=== PATIENT | male | born 1970 | race Caucasian/White ===

== ENCOUNTER 2017-02-20 05:39 | Day surgery (SDC) | payer OTHER ==
[~2017-02-20] VITALS: Ht 182.9 cm; Wt 84.4 kg
--- NOTE | ~2017-02-20 | O ---
[facility] [place] [address] [address] [address] OPERATIVE REPORT Name: CARLOS SHELL MAKAYLA Room #: DEP [facility]..#: [id number] Admission: 02/20/17 Attend Phys: Luis Miguel Holley MD Discharge: 02/20/17 Date of : 68 Report #: [id number] THIS REPORT FOR: //name// CC: Luis Miguel Skinner DATE OF SERVICE: 02/20/2017 CHIEF COMPLAINT: Nasal airway obstruction and polyposis. POSTOPERATIVE DIAGNOSIS: Nasal airway obstruction and polyposis. PROCEDURE: Revision nasal septoplasty. SURGEON: Luis Miguel Holley M.D. ANESTHESIA: General LMA. INDICATIONS: See H and P. FINDINGS: Moderate polyposis was noted in the left nasal vault with an atretic left middle turbinate, polypoid cobblestoning of the mucosa was noted on both sides of the nasal passages. Septal deflection was as described in the body of the technique. TECHNIQUE: After obtaining consent, he was brought to the operating suite, appropriate time out was performed. General oral LMA anesthesia was obtained. The bed was turned 90 degrees. The nose was prepped and draped in usual sterile fashion. The eyelids were protected by Anesthesia with tape. Originally, this was thought to be an endoscopic sinus case with septoplasty. Therefore, the ANTERIOS guidance system was registered and appropriate accuracy was confirmed. Cottonoids with Afrin were placed in each side of the nares for vasoconstriction of the inferior and middle turbinates. These were then removed using a 0 degree scope. Inspection was performed both left and right sides. Actually, there was noted to be a septal deviation to the patient's left side inferiorly and in the mid portion involving the quadrangular cartilage with a high septal deviation correction to the right side. The patient had previous "rhinoplasty" by history and his nasal bones were very narrowed superiorly limiting access superiorly. Due to the septal deviation on the left side and a polypoid mucosa which did not respond to vasoconstriction, visualization of the middle meatus and middle turbinate, the polyps was not adequate on the left or the right side. Therefore, the decision was made and discussed with the patient preoperatively to proceed with septoplasty to correct the septal deviation in hopes of improving visualization. [facility] [address] [place] [address] OPERATIVE REPORT Name: CARLOS SHELL MAKAYLA Room #: DEP [facility].#: [id number] Admission: 02/20/17 Attend Phys: Luis Miguel Holley MD Discharge: 02/20/17 Date of : 68 Report #: [id number] Each side of the septum was injected with 1% Xylocaine 1:100,000 epinephrine. Approximately, 6 mL local anesthetic was used. After waiting several minutes, a right-sided hemitransfixion incision was made followed by elevation of mucoperichondrial flap on the left side with substantial difficulty. It was found that the patient in nmed had had a previous septoplasty as after initially findings the quadrangular cartilage on the left side, this quickly disappeared into a scar tissue with an absence of quadrangular cartilage indicating previous excision. I then required the quadrangular cartilage superiorly and was able, with some technical difficulty, to elevate a mucosal flap on both the right and left sides of the very deviated superior quadrangular cartilage. I continued to follow this back tissue, which was actually in the perpendicular plate and the vomer where I was able to back elevate a mucosal flap on both right and left sides. Having adequate visualization inferiorly, I then was able to back elevate towards the anterior portion and inferiorly on the quadrangular cartilage on the left side. Using a Scott blade to come across scar tissue, multiple small fragments of quadrangular cartilage were removed during this time, which had evidently been placed back in the septal pocket at some point in time from his previous surgery. These were essentially placed out to the left of the maxillary crest essentially created the left-sided deviation. I then removed the deviation of the superior quadrangular cartilage and the anterior perpendicular plate with the use of Vitor-Juan scissors and Srinivasa forceps and continued following elevation back as far as I could posteriorly into the vomer and perpendicular plate removing the generalized deviation to the right side as much as possible. Due to the tedious nature of the dissection, this took significantly longer than normal and by completion of the septoplasty, the septal mucosa had become somewhat edematous. Septum was relatively straight at this standpoint and the previously harvested cartilage was felt to be relatively straight, was morcellized and placed carefully between the septal flaps. Hemitransfixion incision was closed with simple interrupted 4-0 chromic suture. At this time, I attempted to again look back onto the right and the left nasal passages, but there was too much swelling from the previous dissection to adequately still visualize the middle meatus despite having the septum straight. Cottonoids were placed within the nares in hopes of vasoconstricting the septal flaps for 5 minutes. Upon removal, there was still not adequate visualization due to the tissue swelling from the manipulation during the septoplasty. At this point, I felt it is best to allow the septum to fully heal and return at a later date for completion of the sinus surgery under a safer and better visualization. Simple splints were designed and fashioned by myself, placed in each side of the septum and secured with a 3-0 Prolene suture. Antibiotic ointment was applied to the splints before application. Single piece of Xerogel was then placed between the septum and the middle turbinates bilaterally to prevent any synechia formation. He is allowed to awaken from anesthesia, went to recovery room in stable condition. [facility] [address] [place] [address] OPERATIVE REPORT Name: SUMAYACARLOS MAKAYLA [facility]#: [id number] Admission: 02/20/17 Attend Phys: Luis Miguel Holley MD Discharge: 02/20/17 Date of : 68 Report #: [id number] ESTIMATED BLOOD LOSS: Approximately 75 mL. By: 0827 [id number] Luis Miguel Holley MD /nt
--- NOTE | ~2017-02-20 | EKG ---
[address] [address] ELECTROCARDIOGRAM REPORT Name: CARLOS SHELL Room #: 150-6 [facility].#: [id number] Admission: 02/20/17 Attend Phys: Luis Miguel Holley MD Discharge: Date of : 68 Report #: [id number] THIS REPORT FOR: //name// [facility] Test Date: 2017-02-20 Test Time: 07:09:54 Pat Name: CARLOS SHELL Department: Room: 150 6 Gender: M Area Field Person: JOHANNE : 1970 Requested By: Luis Miguel Holley Order Number: [id number] MD: Jae Sheehan Measurements Intervals [place] Rate: 75 P: 62 MA: 160 QRS: 53 QRSD: 89 T: 35 QT: 341 QTc: 381 Interpretive Statements Sinus rhythm RSR' in V1 or V2, right VCD or RVH No previous ECG available for comparison Electronically Signed On 02-20-2017 9:40:30 CDT by Jae Sheehan [email or web address] <ELECTRONICALLY SIGNED> By: Jae Sheehan MD, [facility] 02/20/17 0940 D: [id number] Jae Sheehan MD, [facility] /EPI
[~2017-02-20 05:39] MED LIST: BREO ELLIPTA 21 EACH IH; CENTRUM SILVER1 EAC2 PO; FISH OIL 1,001000 M2 PO; FLONASE 0.05%50 MCG NASAL; LISINOPRIL20 MG PO; PREDNISONE 10 M10 M1 PO; PROAIR HFA8.5 GM IH; SINGULAIR 10 MG10 M1 PO; TUSSIONEX PENN473 ML PO; VENTOLIN HFA 1818 GM INH; ZPAK PO
[2017-02-20 11:40] VITALS: BP 132/93
== END 2017-02-20 11:13 | disposition home or self-care (01) ==
LOC: OR 05:39 → TBA 05:39 → OR 08:17
DX: J32.9 Chronic sinusitis, unspecified (principal); J45.909 Unspecified asthma, uncomplicated; I10 Essential (primary) hypertension; Z87.891 Personal history of nicotine dependence
CPT/HCPCS: 50010; 50101; 50286; 50386; 50398; 50426; 50573; 50951; 51316; 51634; 52290; 52291; 53618; 56526; 56528; 62110; 62900; 64032; 70005

== ENCOUNTER 2017-07-10 05:16 | Day surgery (SDC) | payer OTHER ==
[~2017-07-10] VITALS: Ht 185.4 cm; Wt 87.5 kg
--- NOTE | ~2017-07-10 | S ---
[facility] [address] [place] [address] SURGICAL PATH RPT PROCEDURE Name: CARLOS SHELL Room #: DEP [facility] M.R.#: [id number] Admission: 07/10/17 Date of : 68 Discharge: 07/10/17 Report #: [id number] Path Case #: [id number] PATHOLOGY REPORT DRAFT COLLECTION DATE: 07/10/2017 RECEIVED DATE: 07/10/2017 SPECIMEN(S) RECEIVED: Yolie navarro
--- NOTE | ~2017-07-10 | O ---
[facility] [address] [address] [address] OPERATIVE REPORT Name: CARLOS SHELL Room #: DEP [facility]..#: [id number] Admission: 07/10/17 Attend Phys: Luis Miguel Holley MD Discharge: 07/10/17 Date of : 68 Report #: [id number] THIS REPORT FOR: //name// CC: Luis Miguel Skinner DATE OF SERVICE: 07/10/2017 PREOPERATIVE DIAGNOSES: Nasal polyposis, sinusitis. POSTOPERATIVE DIAGNOSES: Nasal polyposis, sinusitis. PROCEDURE: Endoscopic nasal polypectomy left side, left nasal antral window with content removal, limited left anterior ethmoidectomy, right nasal antral window. SURGEON: Luis Miguel Holley MD. ANESTHESIA: General oral endotracheal. INDICATIONS: See H and P. FINDINGS: A very polypoid-like mucosa on both sides of the nasal septum, atretic and thin middle turbinates noted, large polyps emanating from the left maxillary ostia and the left middle meatus essentially filling the left nasal passageway with limited involvement in the anterior left ethmoid bulla, atretic and somewhat thin right middle turbinate with right lateral nasal wall mucosal membrane polypoid thickening. TECHNIQUE: After obtaining consent, he was brought to the operating suite, appropriate timeout was performed. General oral endotracheal anesthesia was obtained, the bed was turned to 90 degrees. Nose was prepped and draped in usual sterile fashion. He was placed in a slight head up position. Cottonoids with Afrin were placed on each side of the nares for vasoconstriction. After waiting several minutes, they were removed. A 2 mL local anesthetic was injected into the left nasal polyposis and bilateral lateral nasal gillespie over the uncinate processes. Using a 0-degree scope, I first intubated the left side of the nares, it was noted that the mucosa along the septum and the lateral nasal wall was very annie and polypoid in nature without jamey polyposis. The middle turbinate was identified and medialized with a [place], it was very atretic. Using a microdebrider, a polypectomy was performed in an inferior to superior direction removing the large polyps from the middle meatus as well as from the maxillary sinus. Upon completion of the polypectomy, a limited anterior bullectomy/anterior ethmoidectomy was performed back to healthy appearing mucosa [address] [address] OPERATIVE REPORT Name: SUMAYACARLOS MAKAYLA Room #: DEP [facility] M.R.#: [id number] Admission: 07/10/17 Attend Phys: Luis Miguel Holley MD Discharge: 07/10/17 Date of : 68 Report #: [id number] and tissue. Modest polyps were noted in the anterior most left ethmoid air cells, mostly the inferior cells. I then enlarged the maxillary ostia with a frontal sinus balloon and enlarged this slightly more with a side biting forceps and hemostasis was obtained with the use of cottonoids soaked with Afrin. Attention was turned to the right side. There was substantially more polypoid edema on the septum on this side and on the lateral nasal wall, which made the technical aspects more difficult as it required recurrent use of cottonoids to help decongest this area. The middle turbinate was found to be very atretic. The uncinate process was brought forward slightly with a double ball. Multiple attempts were made with the balloon to try to dilate the maxillary ostia, which were unsuccessful, mainly due to technical difficulties being able to see adequately to get it in there into the area underneath the uncinate process. Therefore, a double ball was used to bring the inferior portion of the uncinate process forward and the double ball easily was admitted into the maxillary ostia. I then used a side biter and to some degree the microdebrider to take down the lower half of the uncinate process and then the side biter was used to try to open the inferior aspect of the maxillary ostia. After accomplishing this, I was able to visualize the bulla mucosa better. The bulla mucosa did not appear to be having any polyps, it was slightly polypoid in appearance and thickened, but I felt did not warrant removal as the ethmoid sinuses behind this appeared normal on the CT scan, there were no jamey polyposis present. A piece of Xerogel was cut in half and I folded it, placed it into the maxillary ostia on the right side out and to push the middle turbinate more medially. Second piece was used to try to push the edematous septal mucosa away from the uncinate process excision area to prevent any synechia formation in this area. Nasopharynx was suctioned free of secretions. He was allowed to awaken from anesthesia, went to recovery room in stable condition. ESTIMATED BLOOD LOSS: About 20 mL. <ELECTRONICALLY SIGNED> By: Luis Miguel Holley MD 07/10/17 1813 [id number] Luis Miguel Holley MD /nt
[2017-07-10 08:12] VITALS: BP 126/80
[2017-07-10 10:16] VITALS: BP 126/80
== END 2017-07-10 11:05 | disposition home or self-care (01) ==
LOC: OR 05:16 → TBA 05:17 → OR 10:17
DX: J32.8 Other chronic sinusitis (principal); J33.9 Nasal polyp, unspecified; I10 Essential (primary) hypertension; J45.909 Unspecified asthma, uncomplicated; Z87.891 Personal history of nicotine dependence; Z98.890 Other specified postprocedural states; Z88.8 Allergy status to other drugs, medicaments and biological substances; Z79.899 Other long term (current) drug therapy
CPT/HCPCS: 50010; 50101

== ENCOUNTER → 2018-06-04 | Outpatient (CLI) | payer OTHER | LOC: CAT 11:16 | DX: R91.1 Solitary pulmonary nodule (principal); Z88.8 Allergy status to other drugs, medicaments and biological substances; Z87.891 Personal history of nicotine dependence ==

== ENCOUNTER → 2018-11-04 | Outpatient (CLI) | payer OTHER | LOC: CAT 14:40 | DX: R91.8 Other nonspecific abnormal finding of lung field (principal); R91.1 Solitary pulmonary nodule ==

== ENCOUNTER → 2019-10-25 | Outpatient (CLI) | payer OTHER | LOC: CAT 08:44 | DX: R91.8 Other nonspecific abnormal finding of lung field (principal) ==